=== PATIENT | male | born 1935 | race Caucasian/White ===

== ENCOUNTER 2017-09-28 10:36 | Outpatient (CLI) | payer MEDICARE | END 2017-09-28 10:37 | disposition home or self-care (01) | LOC: LAB.F 10:36 | PROVIDERS: ATTEND Physician Assistant | DX: Z12.5 Encounter for screening for malignant neoplasm of prostate (principal) | CPT/HCPCS: 36415; G0103; 84153 ==

== ENCOUNTER 2018-10-19 13:37 | Outpatient (CLI) | payer MEDICARE | END 2018-10-19 13:38 | disposition critical access hospital (66) | LOC: EMS 13:37 | PROVIDERS: ATTEND Surgery | DX: R06.00 Dyspnea, unspecified (principal); F41.9 Anxiety disorder, unspecified | CPT/HCPCS: A0425; A0427 ==

== ENCOUNTER 2018-10-19 13:53 | Emergency (ER) | payer MEDICARE ==
[2018-10-19] MEDS ORDERED: VECURONIUM 10 MG VIAL IVP STA ×2 (13:57→16:03)
[2018-10-19] MEDS ORDERED: MIDAZOLAM DRIP 50 MG/100 ML BAG IV SCH ×2 (13:57→15:00)
[2018-10-19] MEDS ORDERED: fentaNYL 2,500 MCG in SODIUM CHLORIDE 0.9% 200 ML IV STA (13:57)
[2018-10-19] MEDS ORDERED: VECURONIUM 10 MG VIAL ONE (14:03)
[2018-10-19] MEDS ORDERED: LACTATED RINGERS 2,000 ML IV STA (14:18)
[2018-10-19 14:25] LABS: BILIRUBIN,URINE NEGATIVE (NEGATIVE); GLUCOSE, URINE (UA) NEGATIVE (NEGATIVE); INR 1.1 (0.8-1.2); KETONES,URINE (UA) TRACE mg/dL (NEGATIVE); LEUKOCYTE ESTERASE, URINE NEGATIVE (NEGATIVE); NITRITE,URINE NEGATIVE (NEGATIVE); OCCULT BLOOD,URINE MODERATE (NEGATIVE); PH,URINE 5.5 PH (5.0-7.5); PROTEIN,URINE 100 mg/dL (NEGATIVE); PT - PROTHROMBIN TIME 12.6 secs (9.9-12.6); UROBILINOGEN,URINE 0.2 (NORMAL) E.U./dL (NORMAL)
[2018-10-19 14:27] LABS: BASOPHILS # (AUTO) 0.1 10^3/uL (0.0-0.1); BASOPHILS % (AUTO) 1.1 %; EOSINOPHILS % (AUTO) 0.3 %; HGB - HEMOGLOBIN 15.2 g/dL (14.0-18.0); LYMPHOCYTES # (AUTO) 1.9 10^3/uL (1.5-3.5); MEAN CORPUSCULAR HEMOGLOBIN 31.2 pg (27.0-31.0); MEAN CORPUSCULAR HGB CONC 33.2 g/dL (32.0-36.0); MEAN CORPUSCULAR VOLUME 93.7 fL (80.0-94.0); MEAN PLATELET VOLUME 8.2 fL (7.4-11.4); MONOCYTES # (AUTO) 0.5 10^3/uL (0.0-1.0); MONOCYTES % (AUTO) 4.2 %; NEUTROPHILS # (AUTO) 9.1 10^3/uL (1.5-6.6); NEUTROPHILS % (AUTO) 78.4 %; PLT - PLATELET COUNT 285 10^3/uL (130-450); RED BLOOD COUNT 4.89 10^6/uL (4.70-6.10); RED CELL DISTRIBUTION WIDTH 13.9 % (12.0-15.0); WHITE BLOOD COUNT 11.7 x10^3/uL (4.8-10.8)
--- NOTE | 2018-10-19 14:30 | ED Physician Documentation ---
PD HPI DYSPNEA - Stated complaint Stated Complaint: RESPIRATORY DISTRESS - Chief complaint Chief Complaint: Resp - History obtained from History obtained from: EMS - History of Present Illness Timing - onset: Today Timing - onset during: Rest Timing - details: Abrupt onset Pain level max: 0 Pain level now: 0 Inciting event(s): Other (unknown) Improved by: Other (failed CPAP in the field. intubated by EMS) Worsened by: Other (unknown) Associated symptoms: Fever Review of Systems Unable to obtain: Intubated PD PAST MEDICAL HISTORY - Present Medications Home Medications: Ambulatory Orders Medication Instructions Recorded Confirmed Albuterol Sulf [Ventolin Hfa 1 - 2 puffs INH Q4HR PRN 10/19/18 10/19/18 Inhaler] Atenolol 50 mg PO DAILY 10/19/18 10/19/18 Fluticasone/Salmeterol [Advair 1 each IH PRN PRN 10/19/18 10/19/18 250-50 Diskus] Tamsulosin [Flomax] 1 tab PO DAILY 10/19/18 10/19/18 - Allergies Allergies/Adverse Reactions: Allergies Allergy/AdvReac Type Severity Reaction Status Date / Time No Known Drug Allergies Allergy Verified 10/19/18 15:28 - Living Situation Living Arrangement: reports: At home Results - Vitals Vitals: Vital Signs - 24 hr 10/19/18 10/19/18 10/19/18 13:56 14:08 14:34 Temperature 39.0 C H Heart Rate 139 H 131 H 151 H Respiratory 17 18 18 Rate Blood Pressure 145/86 H 145/86 H 163/103 H O2 Saturation 99 93 98 10/19/18 10/19/18 10/19/18 15:02 15:18 15:41 Temperature 39.5 C H Heart Rate 144 H 128 H 107 H Respiratory 27 H 30 H 27 H Rate Blood Pressure 141/90 H 107/71 88/57 L O2 Saturation 91 L 93 93 10/19/18 10/19/18 10/19/18 15:58 16:00 16:33 Temperature 38.6 C H 38.6 C H Heart Rate 105 H 104 H 105 H Respiratory 27 H 24 Rate Blood Pressure 92/61 98/68 O2 Saturation 95 94 10/19/18 10/19/18 10/19/18 16:34 16:39 17:08 Temperature 36.0 C L Heart Rate 104 H 106 H 96 Respiratory 16 16 16 Rate Blood Pressure 96/61 84/56 L O2 Saturation 91 L 94 10/19/18 10/19/18 10/19/18 17:21 17:25 17:32 Temperature Heart Rate 94 92 93 Respiratory 16 16 17 Rate Blood Pressure 79/55 L 79/55 L 80/56 L O2 Saturation 93 93 95 10/19/18 17:44 Temperature 37.2 C Heart Rate 97 Respiratory 19 Rate Blood Pressure 95/63 O2 Saturation 95 Oxygen O2 Source Mechanical ventilator - EKG (time done) 1427 Rate: Rate (enter#) (153) Rhythm: Sinus tachycardia [place]: Normal Intervals: Normal HI QRS: Normal Ischemia: Other (ST depression, likely rate related.) - Labs Labs: Laboratory Tests 10/19/18 10/19/18 10/19/18 13:15 13:15 13:15 WBC 11.7 H RBC 4.89 Hgb 15.2 Hct 45.8 MCV 93.7 MCH 31.2 H MCHC 33.2 RDW 13.9 Plt Count 285 MPV 8.2 Neut # (Auto) 9.1 H Lymph # (Auto) 1.9 [place] # (Auto) 0.5 Eos # (Auto) 0.0 Baso # (Auto) 0.1 Absolute Nucleated RBC 0.01 Nucleated RBC % 0.1 Manual Slide Review Indicated RBC Morph Micro Appear 1+ ANISOCYTOSIS PT 12.6 INR 1.1 APTT 27.0 Sodium Potassium Chloride Carbon Dioxide Anion Gap BUN Creatinine Estimated GFR (MDRD) Glucose Lactic Acid Calcium Total Bilirubin AST ALT Alkaline Phosphatase Troponin I B-Natriuretic Peptide 492 H Total Protein Albumin Globulin Albumin/Globulin Ratio Lipase Urine Color Urine Clarity Urine pH Ur Specific [place] Urine Protein Urine Glucose (UA) Urine Ketones Urine Occult Blood Urine Nitrite Urine Bilirubin Urine Urobilinogen Ur Leukocyte Esterase Urine RBC Urine WBC Ur Squamous Epith Cells Amorphous Sediment Urine Bacteria Urine Casts Ur Microscopic Review Urine Culture Comments Influenza A (Rapid) Influenza B (Rapid) 10/19/18 10/19/18 10/19/18 13:15 14:17 14:17 WBC RBC Hgb Hct MCV MCH MCHC RDW Plt Count MPV Neut # (Auto) Lymph # (Auto) [place]yer # (Auto) Eos # (Auto) Baso # (Auto) Absolute Nucleated RBC Nucleated RBC % Manual Slide Review RBC Morph Micro Appear PT INR APTT Sodium 134 L Potassium 4.3 Chloride 101 Carbon Dioxide 23 Anion Gap 10.0 BUN 17 Creatinine 1.3 H Estimated GFR (MDRD) 53 L Glucose 175 H Lactic Acid Calcium 8.3 L Total Bilirubin 1.2 H AST 27 ALT 17 Alkaline Phosphatase 48 Troponin I 0.29 B-Natriuretic Peptide Total Protein 7.1 Albumin 4.0 Globulin 3.1 Albumin/Globulin Ratio 1.3 Lipase 25 Urine Color YELLOW Urine Clarity HAZY Urine pH 5.5 Ur Specific [place] >=1.030 H Urine Protein 100 H Urine Glucose (UA) NEGATIVE Urine Ketones TRACE Urine Occult Blood MODERATE H Urine Nitrite NEGATIVE Urine Bilirubin NEGATIVE Urine Urobilinogen 0.2 (NORMAL) Ur Leukocyte Esterase NEGATIVE Urine RBC 0-5 Urine WBC 0-3 Ur Squamous Epith Cells NONE SEEN Amorphous Sediment Rare Urine Bacteria Rare Urine Casts 3-5 Hyaline Casts Ur Microscopic Review INDICATED Urine Culture Comments NOT INDICATED Influenza A (Rapid) Influenza B (Rapid) 10/19/18 10/19/18 14:17 15:11 WBC RBC Hgb Hct MCV MCH MCHC RDW Plt Count MPV Neut # (Auto) Lymph # (Auto) [place] # (Auto) Eos # (Auto) Baso # (Auto) Absolute Nucleated RBC Nucleated RBC % Manual Slide Review RBC Morph Micro Appear PT INR APTT Sodium Potassium Chloride Carbon Dioxide Anion Gap BUN Creatinine Estimated GFR (MDRD) Glucose Lactic Acid 2.2 Calcium Total Bilirubin AST ALT Alkaline Phosphatase Troponin I B-Natriuretic Peptide Total Protein Albumin Globulin Albumin/Globulin Ratio Lipase Urine Color Urine Clarity Urine pH Ur Specific [place] Urine Protein Urine Glucose (UA) Urine Ketones Urine Occult Blood Urine Nitrite Urine Bilirubin Urine Urobilinogen Ur Leukocyte Esterase Urine RBC Urine WBC Ur Squamous Epith Cells Amorphous Sediment Urine Bacteria Urine Casts Ur Microscopic Review Urine Culture Comments Influenza A (Rapid) Negative Influenza B (Rapid) Negative - Rads (name of study) cxr Radiology: Prelim report reviewed, EMP read contemporaneously, See rad report (Endotracheal tube tip 2.5 cm above the loren. 2. Nonspecific perihilar opacities favors edema pattern. In the right clinical scenario, aspiration is also possible. ) CT angio Radiology: Prelim report reviewed, EMP read contemporaneously PD MEDICAL DECISION MAKING - ED course Complexity details: reviewed results, re-evaluated patient, considered differential, d/w patient, d/w test consultant ED course: 83 year old male with pneumonia, sepsis. possible influenza? Sick for past 3-4 days per and Return from [place] last night. Worsening today. Has had fevers as well. Did have his flu shot this year. Given IV vancomycin and Zosyn. Heart rate appeared to be SVT, no significant change with adenosine. Given a dose of diltiazem which did slow him and he is in sinus tach. Discussed the case with our hospitalist, Tirso Lynch who cannot admit the patient here because he does not have vent privileges. Therefore will need to be transferred. Discussed the case with Dr. Dwyer, [facility], no beds available at [facility]. Recommends transfer to [facility] or [facility]. No beds available at [facility]. [facility] in [place] does have a bed. I spoke with Dr. Teri Sanders, ICU who graciously accepts in transfer. COBRA forms filled out This document was made in part using voice recognition software. While efforts are made to proofread this document, sound alike and grammatical errors may occur. - Critical Care Time(min): 60 Time Includes: Direct patient care Data interpretation: See progress note Procedures included in critical care time: See progress note Procedures excluded from critical care time: See progress note Departure - Departure Disposition: 02 Transfer Acute Care Hosp Clinical Impression: Pneumonia Qualifiers: Pneumonia type: due to unspecified organism Laterality: bilateral Lung location: unspecified part of lung Qualified Code(s): J18.9 - Pneumonia, unspecified organism Sepsis Qualifiers: Sepsis type: sepsis due to unspecified organism Qualified Code(s): A41.9 - Sepsis, unspecified organism Fever Qualifiers: Fever type: unspecified Qualified Code(s): R50.9 - Fever, unspecified Condition: Serious Discharge Date/Time: 10/19/18 18:29
--- NOTE | 2018-10-19 14:31 | XRAY Report ---
Reason: Chest Pain Procedure Date: 10/19/2018 Accession Number: [id number] / [id number] Procedure: XR - Chest 1 View X-Ray CPT Code: 62345 FULL RESULT: EXAM: CHEST RADIOGRAPHY EXAM DATE: 10/19/2018 02:21 PM. CLINICAL HISTORY: Chest Pain. COMPARISON: None. TECHNIQUE: 1 view. FINDINGS: Tubes and lines: Patient has been intubated. Tip of the endotracheal tube superimposes over the midline trachea 2.5 cm above the loren. Lungs/Pleura: Perihilar opacities slightly greater on the right, favoring edema pattern. No effusion or extra ventilatory air. Mediastinum: Within exam limitations, the cardiomediastinal contour is normal. Other: None. IMPRESSION: 1. Endotracheal tube tip 2.5 cm above the loren. 2. Nonspecific perihilar opacities favors edema pattern. In the right clinical scenario, aspiration is also possible. RADIA
[2018-10-19 14:39] LABS: RBC MORPHOLOGY (MULTIPLE) 1+ ANISOCYTOSIS (NORMAL)
[2018-10-19 14:47] LABS: AMORPHOUS SEDIMENT,UR Rare /LPF; BACTERIA,URINE Rare /HPF (None Seen); CASTS, URINE 3-5 Hyaline Casts /LPF; CLARITY,URINE HAZY (CLEAR); RBC,URINE 0-5 /HPF (0-5); SQUAMOUS EPITHELIAL CELL,UR NONE SEEN (<= Few)
[2018-10-19] MEDS ORDERED: ADENOSINE 6 MG/2 ML VIAL IVP STA ×2 (14:49→14:59)
[2018-10-19] MEDS ORDERED: VANCOMYCIN INJ 1 GM in SODIUM CHLORIDE 0.9% 500 ML IV STA (14:54)
[2018-10-19] MEDS ORDERED: PIPERACILLIN/TAZOBACTAM 4.5 GM in SODIUM CHLORIDE 0.9% MINIBAG 100 ML IV STA (14:54)
[2018-10-19] MEDS ORDERED: fentaNYL 2,500 MCG in SODIUM CHLORIDE 0.9% 200 ML IV SCH (15:00)
[2018-10-19 15:01] LABS: ALBUMIN/GLOBULIN RATIO 1.3 (1.0-2.2); BILIRUBIN,TOTAL 1.2 mg/dL (0.2-1.0); CALCIUM 8.3 mg/dL (8.5-10.3); CREATININE 1.3 mg/dL (0.6-1.2); TOTAL PROTEIN 7.1 g/dL (6.7-8.2)
[2018-10-19] MEDS ORDERED: ADENOSINE 6 MG/2 ML VIAL IVP ONE (15:05)
[2018-10-19] MEDS ORDERED: ACETAMINOPHEN 1,000 MG/100 ML 100 ML IV STA (15:13)
[2018-10-19] MEDS ORDERED: diltiaZEM INJ 5 MG/ML VIAL IVP STA (15:13)
[2018-10-19] MEDS ORDERED: FUROSEMIDE 40 MG/4 ML VIAL IVP STA (15:36)
[2018-10-19] MEDS ORDERED: LACTATED RINGERS 1,000 ML IV STA ×2 (15:58→17:27)
[2018-10-19] MEDS ORDERED: ALBUTEROL NEB 2.5 MG/3 ML INH STA (16:06)
[2018-10-19] MEDS ORDERED: WATER FOR INJECTION,STERILE 10 ML ONE (16:12)
[2018-10-19] MEDS ORDERED: IOVERSOL 320 100 ML VIAL IVP ONE ×2 (16:37→17:12)
--- NOTE | 2018-10-19 17:32 | CT Report ---
Reason: resp failure, pneumonia, Procedure Date: 10/19/2018 Accession Number: [id number] / [id number] Procedure: CT - ANGIO CHEST W/WO CPT Code: FULL RESULT: EXAM: CT ANGIOGRAM CHEST EXAM DATE: 10/19/2018 05:08 PM. CLINICAL HISTORY: Resp failure, pneumonia. COMPARISON: None. TECHNIQUE: Routine helical imaging was performed through the chest in the pulmonary arterial phase. IV Contrast: CE. Reconstructions: Coronal 3-D MIP reconstructions.Sagittal and coronal. In accordance with CT protocol optimization, one or more of the following dose reduction techniques were utilized for this exam: automated exposure control, adjustment of mA and/or KV based on patient size, or use of iterative reconstructive technique. FINDINGS: Pulmonary Arteries: Diagnostic quality: Adequate through the segmental arteries. No evidence for acute or chronic pulmonary emboli. RV/LV is within normal limits. There is no interventricular septal bowing. There is no reflux of contrast material in the IVC. Lungs/Pleura: There is bilateral dependent consolidation. There is emphysema. No evidence of pleural effusion. No pneumothorax. There are calcified pleural plaques. Mediastinum: Heart size is within normal limits. There are coronary artery and aortic valve calcifications. There are no enlarged axillary, supraclavicular, mediastinal, or hilar lymph nodes. Thoracic Aorta: Opacification of the thoracic aorta is inadequate to exclude dissection. No displaced intimal calcifications are seen. There is no evidence of acute intramural hematoma. No aortic aneurysm. Upper Abdomen: Unremarkable. Other: Endotracheal and orogastric tubes are in place. IMPRESSION: 1. No evidence of acute pulmonary embolism. 2. There is bibasilar dependent consolidation which could represent pneumonia and atelectasis. 3. There is underlying emphysema. 4. There is no pneumothorax. 5. There is no definite evidence of aortic dissection. No aneurysm. RADIA
[2018-10-19 17:45] VITALS: BP 95/63
== END 2018-10-19 18:29 | disposition short-term general hospital (02) ==
LOC: EDUNIT# → ED 13:53
DX: J18.9 Pneumonia, unspecified organism (principal); A41.9 Sepsis, unspecified organism; R50.9 Fever, unspecified; I47.1 Supraventricular tachycardia
CPT/HCPCS: 36415; 51702; 71045; 71275; 80053; 81001; 83605; 83690; 83880; 84484; 85025; 85610; 85730; 87040; 87275; 87276; 93005; 94640; 94770; 96365; 96367; 96368; 96375; 96376; 99284; 99291; J0131; J0153; J3010; J3370; J7120; Q9967; 81003; 87086; 99285